=== PATIENT | female | born 1970 | race Two or more races ===

== ENCOUNTER 2025-11-19 03:54 | Emergency (ER) | payer MEDICAID, OTHER ==
[~2025-11-19] VITALS: Ht 152.4 cm; Wt 154.8 kg
--- NOTE | 2025-11-19 04:28 | ED.PDOC ---
History of Present Illness HPI Comments 55-year-old female who came to ER for headaches. Patient states at about 8:00 p.m. last night she started having frontal headaches associated nausea. Denies any unilateral weakness or numbness. 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 Family History Family History: Reviewed,noncontributory to illness Social History Smoker: Non-Smoker Alcohol: Denies ETOH Use Drugs: Denies Drug Use Lives In: Home Constitutional: denies: chills, diaphoresis, fatigue, fever, malaise, sweats, weakness, others EENTM: denies: blurred vision, double vision, ear bleeding, ear discharge, ear drainage, ear pain, ear ringing, eye pain, eye redness, hearing loss, mouth pain, mouth swelling, nasal discharge, nose bleeding, nose congestion, nose pain, photophobia, tearing, throat pain, throat swelling, voice changes, others Respiratory: denies: cough, hemoptysis, orthopnea, SOB at rest, shortness of breath, SOB with excertion, stridor, wheezing, others Cardiovascular: denies: chest pain, dizzy spells, diaphoresis, Dyspnea on exertion, edema, irregular heart beat, left arm pain, lightheadedness, palpitations, PND, syncope, others Gastrointestinal: reports: nausea; denies: abdomen distended, abdominal pain, blood streaked bowels, constipated, diarrhea, dysphagia, difficulty swallowing, hematemesis, melena, poor appetite, poor fluid intake, rectal bleeding, rectal pain, vomiting, others Genitourinary: denies: abnormal vagina bleeding, burning, dyspareunia, dysuria, flank pain, frequency, hematuria, incontinence, pain, , vagina discharge, urgency, others Neurological: reports: headache; denies: dizziness, fainting, left sided numbness, left sided weakness, numbness, paresthesia, pre-existing deficit, right sided numbness, right sided weakness, seizure, speech problems, tingling, tremors, weakness, others Musculoskeletal: denies: back pain, gout, joint pain, joint swelling, muscle pain, muscle stiffness, neck pain, others Integumetry: denies: bruises, change in color, change in hair/nails, dryness, laceration, lesions, lumps, rash, wounds, others Allergic/Immunocompromised: denies: Difficulty Healing, Frequent Infections, Hives, Itching, others Hematologic/Lymphatic: denies: anemia, blood clots, easy bleeding, easy b ruising, swollen glands, others Endocrine: denies: excessive hunger, excessive sweating, excessive thirst, excessive urination, flushing, intolerance to cold, intolerance to heat, unexplained weight gain, unexplained weight loss, others Psychiatric: denies: anxiety, bipolar disorder, depression, hopeless, panic disorder, schizophrenia, sleepless, suicidal, others Physical Exam General Appearance: Moderate Distress, Normal HEENT: Normal ENT Inspection, Pharynx Normal, TMs Normal Neck: Full Range of Motion, Non-Tender, Normal, Normal Inspection Respiratory: Chest Non-Tender, Lungs Clear, No Accessory Muscle Use, No Res piratory Distress, Normal Breath Sounds Cardiovascular: No Edema, No JVD, No Murmur, No Gallop, Normal Peripheral Pulses, Regular Rate/Rhythm Breast Exam: Deferred Gastrointestinal: No Organomegaly, Non Tender, No Pulsatile Mass, Normal Bowel Sounds, Soft Genitalia: Deferred Pelvic: Deferred Rectal: Deferred Extremities: No calf tenderness, Normal capillary refill, Normal inspection, Normal range of motion, Non-tender, No pedal edema Musculoskeletal : Apperance: Normal Neurologic: Alert, deli manager II-XII nml as Tested, No Motor Deficits, Normal Affect, Normal Mood, No Sensory Deficits Cerebellar Function: Normal Reflexes: Normal Skin: Dry, Normal Color, Warm Peripheral Pulses: 3+ Radial (R), 3+ Radial (L) Lymphatic: No Adenopathy Was a procedure done? Was a procedure done?: No Differential Dx Considerations may include: Anemia, electrolyte imbalance, migraine headaches, hypertensive urgency, X-Ray, Labs, Meds, VS Vital Signs Date Time Temp Pulse Resp B/P (MAP) Pulse Ox O2 Delivery O2 Flow Rate FiO2 11/19/25 05:48 170/83 11/19/25 05:39 64 17 97 Room Air 11/19/25 05:39 98.5 64 17 170/83 (112) 97 98.5 11/19/25 03:57 97.7 72 16 176/98 98 97.7 Lab Test 11/19/25 04:23 Range/Units White Blood Count 8.6 4.4-10.8 10^3/uL Red Blood Count 5.02 4.0-5.20 10^6/uL Hemoglobin 14.8 12.2-16.2 g/dL Hematocrit 43.2 36.0-46.0 % Mean Corpuscular Volume 86.1 80.0-100.0 fL Mean Corpuscular Hemoglobin 29.5 28.0-32.0 pg Mean Corpuscular Hemoglobin Concent 34.2 32.0-36.0 g/dL Red Cell Distribution Width 13.0 11.8-14.3 % Platelet Count 234 140-450 10^3/uL Mean Platelet Volume 8.0 6.9-10.8 fL Neutrophils (%) (Auto) 83.3 H 37.0-80.0 % Lymphocytes (%) (Auto) 13.1 10.0-50.0 % Monocytes (%) (Auto) 2.9 0.0-12.0 % Eosinophils (%) (Auto) 0.2 0.0-7.0 % Basophils (%) (Auto) 0.5 0.0-2.0 % Neutrophils # (Auto) 7.1 1.6-8.6 10 ^3/uL Lymphocytes # (Auto) 1.1 0.4-5.4 10 ^3/uL Monocytes # (Auto) 0.3 0-1.3 10 ^3/uL Eosinophils # (Auto) 0 0-0.8 10 ^3/uL Basophils # (Auto) 0 0-0.2 10 ^3/uL Nucleated Red Blood Cells 0.0 % Prothrombin Time 10.3 9.3-11.8 sec Prothrombin Time INR 0.97 0.9-1.15 Activated Partial Thromboplast Time 28.2 24.5-34.5 SEC Sodium Level 138 136-145 mmol/L Potassium Level 3.5 3.5-5.1 mmol/L Chloride Level 103 98-107 mmol/L Carbon Dioxide Level 26 20-31 mmol/L Anion Gap 9 5-15 Blood Urea Nitrogen 8 L 9-23 mg/dL Creatinine 0.57 0.550-1.02 mg/dL Glomerular Filtration Rate Calc 106 >90 mL/min BUN/Creatinine Ratio 14.0 10.0-20.0 Serum Glucose 130 H 74-106 mg/dL Calcium Level 9.5 8.7-10.4 mg/dL Current Medications Medications (Trade) Dose Ordered Sig/Genaro Route Start Time Stop Time Status Last Admin Acetaminophen/ Hydrocodone Bitart (Mobile 10/325MG Tab) 1 tab ONCE ONCE PO 11/19/25 05:45 11/19/25 05:46 DC 11/19/25 05:49 Ondansetron HCl (Zofran Po) 8 mg ONCE ONCE PO 11/19/25 05:45 11/19/25 05:46 DC 11/19/25 05:48 Clonidine HCl (Catapres Tablet) 0.2 mg ONCE ONCE PO 11/19/25 05:45 11/19/25 05:46 DC 11/19/25 05:48 Patient alert. Came in because of headache. Vitals stable. Answering questions. Was given pain medication. Blood pressure elevated. Was given clonidine. CT of the head reviewed does not show any acute changes. Explained to the patient. Was told to follow up with her primary care physician. Was told to come back if there is any problem. Time of 1ST Reevaluation: 04:26 Reevaluation 1ST: Unchanged Time of 2ND Reevaluation: 07:44 Reevaluation 2ND: Improved Patient Education/Counseling: Diagnosis, Treatment Family Education/Counseling: No Family Present SEPSIS Sepsis Screen Date sepsis recognized/suspect: Nov 19, 2025 Time Sepsis recognized/suspect: 035 Recent Procedure: No On Antibiotic Therapy: No Respiratory Rate >20: No Heart Rate >90: No Temp<36 C (96.8 F) or >38.3 C: No SBP <90 or MAP <65 mmHG: No New Acute Mental Status Change: No Is the patient on CPAP, BIPAP,: No Physician Orders Head Without Contrast (11/19/25 03:59) Vital Signs Date Time Temp Pulse Resp B/P (MAP) Pulse Ox O2 Delivery O2 Flow Rate FiO2 11/19/25 05:48 170/83 11/19/25 05:39 64 17 97 Room Air 11/19/25 05:39 98.5 64 17 170/83 (112) 97 98.5 11/19/25 03:57 97.7 72 16 176/98 98 97.7 Laboratory Tests Test 11/19/25 04:23 White Blood Count 8.6 10^3/uL (4.4-10.8) Medications Medications Dose Ordered Sig/Genaro Route Start Time Stop Time Status Last Admin Dose Admin Acetaminophen/ Hydrocodone Bitart 1 tab ONCE ONCE PO 11/19/25 05:45 11/19/25 05:46 DC 11/19/25 05:49 Clonidine HCl 0.2 mg ONCE ONCE PO 11/19/25 05:45 11/19/25 05:46 DC 11/19/25 05:48 Ondansetron HCl 8 mg ONCE ONCE PO 11/19/25 05:45 11/19/25 05:46 DC 11/19/25 05:48 Departure 1 Departure Time of Disposition: 07:44 Impression: Primary Impression: Hypertensive urgency Additional Impressions: Hyperglycemia Headache Qualified Codes: R51.9 - Headache, unspecified Disposition: 01 HOME / SELF CARE / HOMELESS Condition: Good Discharged With: Self Critical Care Note Critical Care Time?: No Stability Stability form required: No Heart Score Heart Score: Heart Score Response (Comments) Value History N/A 0 EKG N/A 0 Age N/A 0 Risk Factors N/A 0 Troponin N/A 0 Total 0 I personally scribed for SHAHIDA AVERY MD ([email or web address]) on 11/19/25 at 04:28. Electronically submitted by Angelo Burroughs ([email or web address]). SHAHIDA AVERY MD Nov 19, 2025 04:28 DAVID PETERS MD Nov 19, 2025 07:45
[2025-11-19 04:41] LABS: Hematocrit 43.2 % (36.0-46.0); Hemoglobin 14.8 g/dL (12.2-16.2); Mean Corpuscular Hemoglobin 29.5 pg (28.0-32.0); Mean Corpuscular Volume 86.1 fL (80.0-100.0); Nucleated Red Blood Cells % 0.0 %
[2025-11-19 04:51] LABS: Chloride 103 mmol/L (98-107); Potassium 3.5 mmol/L (3.5-5.1); Sodium 138 mmol/L (136-145)
[2025-11-19 04:52] LABS: Anion Gap 9 (5-15); Calcium 9.5 mg/dL (8.7-10.4); Carbon Dioxide 26 mmol/L (20-31)
[2025-11-19 04:57] LABS: BUN/Creatinine Ratio 14.0 (10.0-20.0); INR 0.97 (0.9-1.15); Partial Thromboplastin Time 28.2 SEC (24.5-34.5); Prothrombin Time 10.3 sec (9.3-11.8)
[2025-11-19 05:01] LABS: Blood Urea Nitrogen 8 mg/dL (9-23); Glucose 130 mg/dL (74-106)
[2025-11-19] MEDS: ONDANSETRON ODT 4 MG TAB PO ONE (05:48)
[2025-11-19] MEDS: HYDROcodone-ACET 10/325MG TAB PO ONE (05:49)
--- NOTE | 2025-11-19 06:31 | DVH ---
INDICATION: headache COMPARISON: None TECHNIQUE: Utilizing a multislice CT scanner, a CT scan of the brain was performed without intravenous contrast. Coronal and sagittal reformatted images. All CT scans at this facility use dose modulation, iterative reconstruction, and/or weight based dosing when appropriate to reduce radiation dose to as low as reasonably achievable. FINDINGS: There is no acute infarct, intracranial hemorrhage, or mass effect. There is no hydrocephalus or significant midline shift. No acute, depressed calvarial fractures. 1.1 cm broad-based right anterior frontal calvarial external osseous outgrowth. No large scalp hematomas. IMPRESSION: 1. No acute intracranial process.
[2025-11-19 08:08] VITALS: BP 95/66; PULSE 56; RESP 15; TEMP 98.1; O2SAT 91
== END 2025-11-19 08:14 | disposition home or self-care (01) ==
LOC: ER 03:54
DX: I16.0 Hypertensive urgency (principal); R73.9 Hyperglycemia, unspecified; R51.9 Headache, unspecified; I10 Essential (primary) hypertension
CPT/HCPCS: 36415; 70450; 80048; 85025; 85610; 85730; 99284; Q0162